=== PATIENT | female | born 1955 | race Caucasian/White ===

== ENCOUNTER → 2021-04-10 17:20 | Outpatient (CLI) | payer OTHER, SELFPAY ==
--- NOTE | 2021-04-10 17:21 | DI.RAD.S_ITS ---
PROCEDURE: XR ANKLE RT MIN 3V INDICATIONS: fall TECHNIQUE: 3 views of the ankle were acquired. COMPARISON: [facility], CR, FOOT COMP MIN 3VW (RT), 06/04/2012, 10:06. FINDINGS: Bones: Fracture of the distal fibula at the level of the syndesmosis. Mild displacement. No dislocations. Ankle mortise is normally aligned. No suspicious bony lesions. Soft tissues: Swelling at the medial malleolus. No tibiotalar joint effusion. Achilles tendon appears normal. IMPRESSION: Distal fibula fracture. Dictated by: Xander Landis M.D. on 04/10/2021 at 17:18 Approved by: Xander Landis M.D. on 04/10/2021 at 17:23
== END ==
PROVIDERS: Referring Provider Nurse Practitioner; Visit Provider Nurse Practitioner
DX: S82.831A Other fracture of upper and lower end of right fibula, initial encounter for closed fracture (principal); M25.571 Pain in right ankle and joints of right foot; M25.471 Effusion, right ankle; X58.XXXA Exposure to other specified factors, initial encounter
CPT/HCPCS: 73610